=== PATIENT | male | born 1965 | race Caucasian/White ===

== ENCOUNTER 2016-09-30 08:46 | Outpatient (CLI) | payer OTHER ==
--- NOTE | 2016-09-30 09:10 | DI ---
EXAM: Two views of the chest. History: Chronic obstructive pulmonary disease and bronchitis. Findings: Heart size is normal. No focal consolidation. No appreciable pleural fluid and no pneum othorax. Mild hyperinflation. No acute osseous abnormalities. Impression: No acute cardiopulmonary process. Mild hyperinflation suggesting chronic obstructive p ulmonary disease.
== END 2016-09-30 08:47 | disposition home or self-care (01) ==
LOC: RAD 08:46
PROVIDERS: ATTEND Physician Assistant Medical
DX: J40 Bronchitis, not specified as acute or chronic (principal)